=== PATIENT | female | born 1945 | race Caucasian/White ===

== ENCOUNTER → 2018-07-12 | Outpatient (CLI) | payer MEDICARE ==
[~2018-07-12] MED LIST: DARVOCET N 1001 TAB PO
[2018-07-12 13:18] LABS: BUN 10 mg/dl (7-24); CHLORIDE 96 mmol/L (98-107); CHOLESTEROL 189 mg/dL (<200); CREATININE 0.88 mg/dL (0.55-1.02); HDL CHOLESTEROL 62 mg/dl (40-60); LDL CHOLESTEROL 97 mg/dL (9-159); POTASSIUM 4.2 mmol/L (3.5-5.1); SODIUM 133 mmol/L (136-145); TRIGLYCERIDES 152 mg/dl (<150); VLDL CHOLESTEROL 30 mg/dL (6-40)
== END | disposition home or self-care (01) ==
LOC: LAB 12:26
PROVIDERS: Family Medicine
DX: I10 Essential (primary) hypertension (principal)

== ENCOUNTER 2019-08-07 12:35 | Inpatient (IN) | payer MEDICARE ==
[~2019-08-07] VITALS: Ht 160 cm; Wt 44.5 kg
[2019-08-07 12:38] VITALS: BP 172/92
[2019-08-07 15:14] LABS: BASO % 0.3 % (0.0-1.0); EOS % 0.1 % (1.0-4.0); LYMPH # 1.5 10*3/uL (1.3-4.4); LYMPH % 20.8 % (27.0-41.0); MEAN CELL VOLUME 89.7 fl (81.0-99.0); MEAN CORPUSCULAR HGB 29.7 pg (27.0-31.0); MEAN CORPUSCULAR HGB CONC 33.1 g/dl (33.0-37.0); MEAN PLATELET VOLUME 8.8 fl (9.6-12.3); MONO # 1.1 10*3/uL (0.1-1.0); MONO % 15.7 % (3.0-9.0); NEUT # 4.4 10*3/uL (2.3-7.9); NEUT % 62.5 % (47.0-73.0); PLATELET COUNT AUTOMATED 196 10*3/uL (130-400); RED BLOOD COUNT 4.35 10*6/uL (4.10-5.10); RED CELL DISTRI WIDTH 13.4 % (0-14.5)
[2019-08-07 15:31] LABS: ALBUMIN 3.2 gm/dl (3.1-4.5); ALKALINE PHOSPHATASE 58 U/L (45-117); BUN 7 mg/dl (7-24); CHLORIDE 91 mmol/L (98-107); CREATININE 0.63 mg/dL (0.55-1.02); POTASSIUM 3.5 mmol/L (3.5-5.1); SGOT/AST 10 IU/L (3-35); SGPT/ALT 11 U/L (12-78); SODIUM 126 mmol/L (136-145); TOTAL PROTEIN 7.5 gm/dL (6.4-8.2)
[2019-08-07 15:41] LABS: BILIRUBIN NEGATIVE (NEGATIVE); BLOOD NEGATIVE (NEGATIVE); CLARITY CLEAR (CLEAR); COLOR YELLOW (YELLOW); GLUCOSE NEGATIVE (NEGATIVE); KETONE NEGATIVE (NEGATIVE); LEUKO ESTERASE 2+ (NEGATIVE); NITRITE NEGATIVE (NEGATIVE); PH 7.5 (5.0-9.0); UROBILINOGEN 0.2 E.U./dl (0.2-1.0)
[2019-08-07 15:46] LABS: BACTERIA 1+
[2019-08-07 17:05] VITALS: BP 169/76
--- NOTE | 2019-08-07 17:05 | NUR ---
Time: 1704 A 74 year old FEMALE admitted to 4E under services of AILEEN SALEH DO. Pt. arrived via stretcher from ER. Chief complaint: RIGHT FIBULA FRACTURE . APLPE NOEL
[2019-08-07] MEDS ORDERED: DEPAKOTE DR500 MG PO (17:30)
[2019-08-07] MEDS ORDERED: LISINOPRIL20 MG PO (17:30)
[2019-08-07] MEDS ORDERED: HYDROCHLOROTHIA25 M1 PO (17:31)
[2019-08-07] MEDS ORDERED: POTASSIUM CHLO20 ME3 PO (17:31)
--- NOTE | 2019-08-07 18:30 | NUR ---
DR CASSIDY RESIDENT HERE TO SPLINT PT RIGHT LE
[2019-08-07 20:00] VITALS: BP 139/67
--- NOTE | 2019-08-07 22:00 | NUR ---
PATIENT VOICED NO COMPLAINTS AT THIS TIME. ONLY WANTS TV CHANNEL CHANGED. RESP ARE ERND ON ROOM AIR. CALL LIGHT WIHTIN REACH
[2019-08-08] VITALS: BP 159/77
--- NOTE | 2019-08-08 00:16 | NUR ---
STATED YANELI MCKEON SWAB IF FOR SNF PLACEMENT. STATED OK TO SWAB IN AM.
[2019-08-08 06:41] LABS: HEMATOCRIT 37.2 % (37.0-47.0); MEAN CELL VOLUME 90.5 fl (81.0-99.0); MEAN CORPUSCULAR HGB 29.4 pg (27.0-31.0); MEAN CORPUSCULAR HGB CONC 32.5 g/dl (33.0-37.0); MEAN PLATELET VOLUME 9.1 fl (9.6-12.3); PLATELET COUNT AUTOMATED 192 10*3/uL (130-400); RED BLOOD COUNT 4.11 10*6/uL (4.10-5.10); RED CELL DISTRI WIDTH 13.6 % (0-14.5); WHITE BLOOD COUNT 5.1 10*3/uL (4.8-10.8)
[2019-08-08 07:04] LABS: BUN 7 mg/dl (7-24); CHLORIDE 97 mmol/L (98-107); CHOLESTEROL 171 mg/dL (<200); CREATININE 0.69 mg/dL (0.55-1.02); POTASSIUM 3.4 mmol/L (3.5-5.1); SODIUM 131 mmol/L (136-145); TRIGLYCERIDES 65 mg/dl (<150); VLDL CHOLESTEROL 13 mg/dL (6-40)
[2019-08-08 07:14] LABS: HDL CHOLESTEROL 56 mg/dl (40-60); LDL CHOLESTEROL 102 mg/dL (9-159)
[2019-08-08 07:55] LABS: VITAMIN D, 25-HYDROXY 14.7 ng/mL (30-100)
[2019-08-08 08:00] VITALS: BP 159/75
[2019-08-08 08:02] LABS: BASOPHILS 1 % (0-1); PLATELET SUFFICIENCY NORMAL (NORMAL); TOTAL CELLS COUNTED 100 #CELLS
--- NOTE | 2019-08-08 08:47 | NUR ---
PT RESTING IN BED. NO DISTRESS NOTED. WILL MONITOR
--- NOTE | 2019-08-08 10:31 | NUR ---
Parts Specialist in to talk to patient. Patient states lives at HOME with ALONE. There are 12 steps in the home. Physician: DAYLIN Pharmacy: [facility] Home health services: NONE Patient's level of ADLs: INDEPENDENT Patient has working utilities: YES DME: NONE Follow-up physician's appointment after d/c: WILL BE MADE BY HOSPITALIST NURSE DIRECTOR ON DISCHARGE Does patient want to access PORTAL?: NO Discharge plan PT LIVES AT HOME ALONE AND IS INDEPENDENT IN HER CARE. PT STATES SHE IS GOING HOME ON DISCHARGE, SHE STATES SHE HAS 40 CATS TO TAKE CARE OF. TALKED TO HER ABOUT HOME HEALTH BUT SHE ALSO REFUSES THAT. DID GET PT TO AGREE TO THINK ABOUT SNF OR HOME HEALTH WHILE SHE IS WAITING FOR PODIATRY TO SEE WHAT PLAN IS FOR FRACTURE. WILL CONTINUE TO FOLLOW. STATES SHE WILL HAVE A RIDE HOME.. RUI BRANDT
[2019-08-08 12:00] VITALS: BP 162/68
[2019-08-08 16:00] VITALS: BP 131/65
[2019-08-08 20:00] VITALS: BP 141/68
[2019-08-09] VITALS: BP 108/54
--- NOTE | 2019-08-09 00:48 | NUR ---
PATIENT MEDICATED WITH TYLENOL FOR C/O RLE PAIN 06/27. WILL MONITOR
[2019-08-09 08:00] VITALS: BP 133/74
--- NOTE | 2019-08-09 09:00 | NUR ---
0800 AM ASSESSMENT COMPLETE. PT RESTING IN BED. LUNGS ARE CLEAR T/O ON ROOM AIR. BOWEL SOUNDS ARE ACTIVE. DENIES C/O AT THIS TIME. CALL LIGHT IN REACH. WILL MONITOR.
[2019-08-09 12:00] VITALS: BP 127/73
[2019-08-09 16:00] VITALS: BP 135/63
[2019-08-09 20:00] VITALS: BP 160/76
--- NOTE | 2019-08-09 20:00 | NUR ---
PATIENT VOICED NO COMPLAINTS AT THIS TIME. RESP ARE ERND ON ROOM AIR. CALL LIGHT WITHIN REACH
[2019-08-10] VITALS: BP 144/62
[2019-08-10 08:00] VITALS: BP 152/76
--- NOTE | 2019-08-10 08:46 | NUR ---
PHYSICAL THERAPY Nursing screen received and chart reviewed. PT evaluation received. Will follow. Thank you. Joi Naik,PT,DPT
--- NOTE | 2019-08-10 08:55 | NUR ---
Nursing screen and OT eval received. Will follow up with patient. Temi Antonio OTR/L
--- NOTE | 2019-08-10 09:00 | NUR ---
case management visits with patient, daughter in law present, discussed with them a short term alf for rehab prior to returning home, patient and daughter in law were receptive, given choice of facilities, [facility] and [facility] choice. referral will be made to both facilities, daughter in law also asked to have poa/living will papers, will ask social science manager to talk with patient and daughter in law and guide them in filling out the poa/living will paperwork, case management will follow
--- NOTE | 2019-08-10 09:25 | NUR ---
Initial referrals faxed to [facility] and [facility] for review. Waiting on PT eval and Covid -19 test results. Will follow
--- NOTE | 2019-08-10 11:12 | NUR ---
Patients daughter requested HPOA/Living will papers. Provided daughter with requested papers.
[2019-08-10 12:00] VITALS: BP 152/59
--- NOTE | 2019-08-10 13:28 | NUR ---
Patient accepted to [facility]; waiting on PT Evaluation and Covid test results.
--- NOTE | 2019-08-10 14:22 | NUR ---
PHYSICAL THERAPY Physical Therapy evaluation completed on 4E with full evaluation to follow. High complexity PT evaluation per chart review and evaluation, [id number]. Recommend physical therapy per plan of care and SNF upon discharge. Thank you for this referral. Joi Naik,PT,DPT
--- NOTE | 2019-08-10 14:56 | NUR ---
PT/OT came in to state patient is refusing to work with them today because she was told by the doctor not to put any weight on her foot. Patient stated she will not do anything until she talks to Katharine. I spoke with Katharine and she stated patient did call her. She stated the PT/OT staff can explain to patient it is the next step in the process and it is ok to work with them. PT/OT will try to work with patient again tomorrow.
[2019-08-10 16:00] VITALS: BP 157/80
--- NOTE | 2019-08-10 16:18 | NUR ---
Occupational Therapy evaluation completed on 4E with full evaluation to follow. Recommend occupational therapy per plan of care and SNF upon discharge. Thank you for this referral. Temi Antonio OTR/L
--- NOTE | 2019-08-10 18:26 | NUR ---
CALLED REGARDING PATIENT HAS HAD 4 EPISODES OF DIARRHEA. PATIENT REQUESTING "SOMETHING TO MAKE IT QUIT."
[2019-08-10 20:00] VITALS: BP 157/78
--- NOTE | 2019-08-10 20:52 | NUR ---
PATIENT MEDICATED WITH IMMODIUM FOR MULTIPLE EPISODE OF DIARRHEA. PATIENT WAS VISABLY UPSET, STATED SHE HAD AN INCONT. EPISODE D/T DIARRHEA. WILL CONTINUE TO MONITOR
--- NOTE | 2019-08-10 21:52 | NUR ---
IMMODIUM EFFECTIVE AT THIS TIME
[2019-08-11] VITALS: BP 159/79
--- NOTE | 2019-08-11 | NUR ---
PATIENT ASLEEP SIS NOT WANT AWAKEN FOR VITALS
[2019-08-11 06:35] LABS: BASO % 0.3 % (0.0-1.0); EOS % 0.4 % (1.0-4.0); HEMATOCRIT 38.5 % (37.0-47.0); LYMPH # 1.7 10*3/uL (1.3-4.4); MEAN CELL VOLUME 93.4 fl (81.0-99.0); MEAN CORPUSCULAR HGB 30.1 pg (27.0-31.0); MEAN CORPUSCULAR HGB CONC 32.2 g/dl (33.0-37.0); MEAN PLATELET VOLUME 9.1 fl (9.6-12.3); MONO # 1.4 10*3/uL (0.1-1.0); MONO % 15.2 % (3.0-9.0); NEUT # 6.1 10*3/uL (2.3-7.9); NEUT % 65.7 % (47.0-73.0); PLATELET COUNT AUTOMATED 206 10*3/uL (130-400); RED BLOOD COUNT 4.12 10*6/uL (4.10-5.10); RED CELL DISTRI WIDTH 14.1 % (0-14.5); WHITE BLOOD COUNT 9.3 10*3/uL (4.8-10.8)
[2019-08-11 06:58] LABS: BUN 8 mg/dl (7-24); CHLORIDE 104 mmol/L (98-107); CREATININE 0.68 mg/dL (0.55-1.02); POTASSIUM 4.2 mmol/L (3.5-5.1); SODIUM 135 mmol/L (136-145)
--- NOTE | 2019-08-11 07:34 | NUR ---
Updates and PT/OT evals faxed to [facility] for review. Covid still pending.
--- NOTE | 2019-08-11 08:00 | NUR ---
PHYSICAL THERAPY Patient seen this am 1;1 for therapy visit and was supine in bed upon therapist arrival. Patient identified by name / and was joined by OT assistant professor of communication who was also present for observation this session. Patient reports 8/10 R LE pain, presenting with R foot / ankle cast. Patient needed MAX encouragement to complete all therapy task this morning, transfering supine to sit EOB with MIN A x 2. Patient tolerated static EOB sit x several minutes to collect herself and is NWB on R LE. Patient performed several sit to stand transfers with MIN A, then completed SPT to bedside chair, MIN A, demonstrating increased difficulty with use of wh walker standing support. Patient 75% compliant with NWB status R LE during pivot phase of transfer, receiving repeated v/c's to complete safe transfer. Patient becomes easily agitated when rushed and needs extra time to complete safe transfers. Patient remained in bedside chair with R LE elevated in semi reclined position, including call light, tray table and body alarm. Will continue per POC as tolerated, total treatment time 14 minutes. Jorge Venegas, HEARING OFFICER
--- NOTE | 2019-08-11 08:15 | NUR ---
OT NOTE Pt was seen this A.M. 1:1 for 25 minute OT session. Upon arrival pt was supine in bed. Pt identified by name and and had complaints of 8/10 RLE pain. Pt's resting SpO2 92% and heart rate 91 bpm. While supine in bed requested for pt to zaki L sock and pants and pt reported "I can't do that, you have to do it for me" pants and L sock donned with maxA requiring assist for zaki and lifting BLE's due to pt reporting she was unable to lift her legs. Pt was educated on NWB to RLE which she was able to self recall. Pt transferred supine to sit EOB with Fareed X 2 for assist with BLE's and UB. Pt completed sit to stand from bed level with Fareed X 2 and use of w/w for UE support. Challenged pt's static standing tolerance needed for increased I in self care tasks and functional transfers, pt was able to tolerate aprox 30-45 seconds at a time before sitting. Standing pivot completed from the EOB to the recliner with Fareed X 2 and aprox 75% compliance with NWB to RLE. Pt was left sitting upright in the recliner with call light in hand, tray table in place, and body alarm activated for safety. Continue with rec D/C plan to SNF. LORY Gordon
[2019-08-11 08:36] VITALS: BP 125/66
--- NOTE | 2019-08-11 09:00 | NUR ---
case management visits with patient, patient was sitting up in a chair in her room, discussed the discharge plan with her of being discharged to [facility] for short term custodial rehab, she was receptive to this, case management will follow
--- NOTE | 2019-08-11 11:01 | NUR ---
MEDICATED WITH PRN NORCO PER ORDER AND REQUEST. WOULD NOT TAKE EARLIER WHEN SHE ASKED FOR ONE BECAUSE HER SON WAS ADDICTED AND SHE DIDNT WANT TO TAKE A PILL THAT WILL HER HER.
--- NOTE | 2019-08-11 11:35 | NUR ---
[facility] stated they will accept this patient today while the Covid test result is still pending. They are stating as long as the patient is not exhibiting any Covid sx. Notified hospitalists office patient can be discharged today.
[2019-08-11 12:00] VITALS: BP 120/55
--- NOTE | 2019-08-11 12:20 | NUR ---
Patient is discharged to [facility] via [facility] at 1:45. disbursement clerk/nursing notified. Daughter in law Katharine notified. DC orders faxed.
--- NOTE | 2019-08-11 14:49 | NUR ---
[facility] IS HERE TO TRANSPORT PATIENT.
--- NOTE | 2019-08-12 08:40 | NUR ---
OCCUPATIONAL THERAPY CO-SIGN I approve of the Occupational Therapy notes written above. Temi Antonio OTR/L
--- NOTE | 2019-08-12 08:41 | NUR ---
PHYSICAL THERAPY CO-SIGN I approve of the Physical Therapy notes written above. VALERIA BUTTERFIELD PT, DPT
== END 2019-08-11 14:49 | disposition other institution (70) | DRG 563 ==
LOC: ED 12:35 → 4E 15:28 → EDHOLD 15:28 → 4E 15:58
PROVIDERS: Internal Medicine; Nurse Practitioner Family; ADMIT Emergency Medicine
PROC: 2W3QX1Z Immobilization of Right Lower Leg using Splint (ICD-10-PCS; principal; 2019-08-07)
DX: S82.831A Other fracture of upper and lower end of right fibula, initial encounter for closed fracture (principal); E87.1 Hypo-osmolality and hyponatremia; N30.00 Acute cystitis without hematuria; R26.2 Difficulty in walking, not elsewhere classified; E87.8 Other disorders of electrolyte and fluid balance, not elsewhere classified; F17.210 Nicotine dependence, cigarettes, uncomplicated; I16.0 Hypertensive urgency; W01.0XXA Fall on same level from slipping, tripping and stumbling without subsequent striking against object, initial encounter; I10 Essential (primary) hypertension; R63.6 Underweight; F31.9 Bipolar disorder, unspecified; Y93.89 Activity, other specified; Y92.098 Other place in other non-institutional residence as the place of occurrence of the external cause; Z71.6 Tobacco abuse counseling; Z68.31 Body mass index [BMI] 31.0-31.9, adult; Y99.8 Other external cause status; Z91.030 Bee allergy status; Z91.040 Latex allergy status; Z79.899 Other long term (current) drug therapy; Z03.818 Encounter for observation for suspected exposure to other biological agents ruled out

== ENCOUNTER → 2019-11-13 | Outpatient (CLI) | payer MEDICARE ==
[~2019-11-13] MED LIST changes: +DEPAKOTE DR500 MG PO; +HYDROCHLOROTHIA25 M1 PO; +LISINOPRIL20 MG PO; +POTASSIUM CHLO20 ME3 PO
== END | disposition home or self-care (01) ==
LOC: RESCLI 02:59
PROVIDERS: ATTEND Family Medicine
DX: I10 Essential (primary) hypertension (principal); F32.9 Major depressive disorder, single episode, unspecified; F41.1 Generalized anxiety disorder; E55.9 Vitamin D deficiency, unspecified; Z53.29 Procedure and treatment not carried out because of patient's decision for other reasons; Z53.20 Procedure and treatment not carried out because of patient's decision for unspecified reasons; Z79.899 Other long term (current) drug therapy; Z87.891 Personal history of nicotine dependence

== ENCOUNTER 2019-12-19 11:26 | Emergency (ER) | payer MEDICARE ==
[~2019-12-19] VITALS: Ht 162.5 cm; Wt 49.4 kg
[2019-12-19 12:23] LABS: BASO % 0.1 % (0.0-1.0); EOS # 0.2 10*3/uL (0.0-0.4); EOS % 3.2 % (1.0-4.0); HEMATOCRIT 43.3 % (37.0-47.0); LYMPH # 2.1 10*3/uL (1.3-4.4); LYMPH % 30.8 % (27.0-41.0); MEAN CELL VOLUME 92.3 fl (81.0-99.0); MEAN CORPUSCULAR HGB 28.8 pg (27.0-31.0); MEAN CORPUSCULAR HGB CONC 31.2 g/dl (33.0-37.0); MEAN PLATELET VOLUME 9.3 fl (9.6-12.3); MONO # 1.1 10*3/uL (0.1-1.0); MONO % 16.1 % (3.0-9.0); NEUT # 3.4 10*3/uL (2.3-7.9); NEUT % 49.4 % (47.0-73.0); PLATELET COUNT AUTOMATED 258 10*3/uL (130-400); RED BLOOD COUNT 4.69 10*6/uL (4.10-5.10); RED CELL DISTRI WIDTH 14.6 % (0-14.5); WHITE BLOOD COUNT 6.9 10*3/uL (4.8-10.8)
[2019-12-19 12:34] LABS: ACT PARTIAL THROMBO TIME 26.4 SECONDS (20.0-32.1)
[2019-12-19 12:44] LABS: ALBUMIN 3.6 gm/dl (3.1-4.5); ALKALINE PHOSPHATASE 90 U/L (45-117); BUN 15 mg/dl (7-24); CHLORIDE 107 mmol/L (98-107); CREATININE 0.86 mg/dL (0.55-1.02); POTASSIUM 4.3 mmol/L (3.5-5.1); SGOT/AST 21 IU/L (3-35); SGPT/ALT 12 U/L (12-78); SODIUM 140 mmol/L (136-145); TOTAL PROTEIN 7.7 gm/dL (6.4-8.2)
[2019-12-19 12:45] LABS: ACETAMINOPHEN (TYLENOL) < 5.0 ug/ml (10-30); ETHYL ALCOHOL < 3.0 mg/dl (<3); TROPONIN I < 0.015 ng/ml (<0.045)
[2019-12-19 12:56] LABS: BILIRUBIN Negative (Negative); BLOOD Negative (Negative); CLARITY Clear (Clear); COLOR Yellow (Yellow); GLUCOSE Negative (Negative); KETONE Negative (Negative); LEUKO ESTERASE Trace (Negative); NITRITE Negative (Negative); UROBILINOGEN 0.2 E.U./dl (0.0-1.0)
[2019-12-19 13:04] LABS: URINE AMPHETAMINES < 1000 (1000ng/ml); URINE BARBITURATES < 200 (200ng/ml); URINE BENZODIAZEPINES < 200 (200ng/ml); URINE CANNABINOIDS (THC) < 50 (50ng/ml); URINE COCAINE < 300 (300ng/ml); URINE METHADONE < 300 (300ng/ml); URINE OPIATES < 300 (300ng/ml)
[2019-12-19 13:05] LABS: BACTERIA TRACE; EPITHELIAL CELLS 0-2; MUCOUS TRACE; RBC 0-2 rbc/hpf (0-2)
[2019-12-19 13:06] LABS: URINE PHENCYCLIDINE < 25 (25ng/ml)
== END 2019-12-19 22:55 | disposition short-term general hospital (02) ==
LOC: ED 11:26
PROVIDERS: Emergency Medicine
DX: I63.9 Cerebral infarction, unspecified (principal); I10 Essential (primary) hypertension; F31.9 Bipolar disorder, unspecified; Z79.899 Other long term (current) drug therapy

== ENCOUNTER → 2020-08-25 | Outpatient (CLI) | payer OTHER ==
[~2020-08-25] MED LIST changes: +ASPIRIN ADULT L81 M1 PO; +LIPITOR40 MG PO; +LOPRESSOR25 MG PO; +MUCINEX ER600 MG PO; +MUCUS RELIEF600 MG PO; +NORVASC5 MG PO; +PREDNISONE10 MG PO; +PROZAC20 MG PO; +REMERON15 M2 PO; +TYLENOL325 M2 PO; +VITAMIN D350 MCG PO; +ZITHROMAX250 MG PO
== END | disposition home or self-care (01) ==
LOC: RAD/SH 13:00
PROVIDERS: ATTEND Family Medicine
DX: R13.12 Dysphagia, oropharyngeal phase (principal)

== ENCOUNTER 2020-08-31 13:39 | Inpatient (IN) | payer OTHER ==
[~2020-08-31] VITALS: Ht 160 cm; Wt 62.2 kg
[~2020-08-31 13:39] MED LIST changes: -LOPRESSOR25 MG PO; -MUCINEX ER600 MG PO; -TYLENOL325 M2 PO
[2020-08-31 13:45] VITALS: BP 109/55
[2020-08-31 14:35] LABS: BASO % 0.6 % (0.0-1.0); EOS # 0.1 10*3/uL (0.0-0.4); EOS % 1.3 % (1.0-4.0); HEMATOCRIT 43.3 % (37.0-47.0); LYMPH # 1.3 10*3/uL (1.3-4.4); LYMPH % 24.8 % (27.0-41.0); MEAN CELL VOLUME 91.9 fl (81.0-99.0); MEAN CORPUSCULAR HGB 29.3 pg (27.0-31.0); MEAN CORPUSCULAR HGB CONC 31.9 g/dl (33.0-37.0); MEAN PLATELET VOLUME 9.8 fl (9.6-12.3); MONO # 0.9 10*3/uL (0.1-1.0); NEUT % 56.1 % (47.0-73.0); PLATELET COUNT AUTOMATED 351 10*3/uL (130-400); RED BLOOD COUNT 4.71 10*6/uL (4.10-5.10); RED CELL DISTRI WIDTH 14.3 % (0-14.5); WHITE BLOOD COUNT 5.4 10*3/uL (4.8-10.8)
[2020-08-31 14:54] LABS: ALBUMIN 2.8 gm/dl (3.1-4.5); ALKALINE PHOSPHATASE 130 U/L (45-117); BUN 20 mg/dl (7-24); CHLORIDE 102 mmol/L (98-107); SGOT/AST 18 IU/L (3-35); SGPT/ALT 9 U/L (12-78); SODIUM 135 mmol/L (136-145); TOTAL PROTEIN 6.2 gm/dL (6.4-8.2)
[2020-08-31 15:16] LABS: POTASSIUM 2.4 mmol/L (3.5-5.1); TROPONIN I < 0.015 ng/ml (<0.045)
[2020-08-31 15:49] LABS: LIPASE 76 U/L (73-393); VALPROIC ACID (DEPAKENE) < 3.0 ug/ml (50-100)
[2020-08-31 17:53] VITALS: BP 115/58
[2020-08-31 18:00] LABS: BILIRUBIN Negative (Negative); BLOOD Negative (Negative); CLARITY Clear (Clear); COLOR Yellow (Yellow); GLUCOSE Negative (Negative); KETONE Negative (Negative); LEUKO ESTERASE 1+ (Negative); NITRITE Negative (Negative); SPECIFIC GRAVITY 1.015 (1.001-1.030)
[2020-08-31 18:17] LABS: BACTERIA 1+
[2020-08-31 18:50] VITALS: BP 127/57
[2020-08-31 20:00] VITALS: BP 134/57
[2020-09-01] VITALS: BP 126/60
[2020-09-01 06:01] LABS: ALBUMIN 2.2 gm/dl (3.1-4.5); BUN 16 mg/dl (7-24); CHLORIDE 108 mmol/L (98-107); CREATININE 0.69 mg/dL (0.55-1.02); POTASSIUM 2.8 mmol/L (3.5-5.1); SGOT/AST 17 IU/L (3-35); SGPT/ALT 8 U/L (12-78); SODIUM 138 mmol/L (136-145)
[2020-09-01 06:06] LABS: BASO % 0.5 % (0.0-1.0); EOS # 0.2 10*3/uL (0.0-0.4); EOS % 3.5 % (1.0-4.0); HEMATOCRIT 34.6 % (37.0-47.0); LYMPH # 1.4 10*3/uL (1.3-4.4); LYMPH % 32.2 % (27.0-41.0); MEAN CELL VOLUME 93.5 fl (81.0-99.0); MEAN CORPUSCULAR HGB 29.7 pg (27.0-31.0); MEAN CORPUSCULAR HGB CONC 31.8 g/dl (33.0-37.0); MEAN PLATELET VOLUME 10.1 fl (9.6-12.3); MONO # 0.8 10*3/uL (0.1-1.0); MONO % 18.8 % (3.0-9.0); NEUT # 1.9 10*3/uL (2.3-7.9); NEUT % 44.1 % (47.0-73.0); PLATELET COUNT AUTOMATED 275 10*3/uL (130-400); RED CELL DISTRI WIDTH 14.4 % (0-14.5); WHITE BLOOD COUNT 4.3 10*3/uL (4.8-10.8)
[2020-09-01 06:08] LABS: ALKALINE PHOSPHATASE 101 U/L (45-117); FREE T4 1.22 ng/dl (0.76-1.46); THYROID STIM HORMONE (HS) 0.806 uIU/ml (0.358-4.75)
[2020-09-01 08:00] VITALS: BP 129/55
[2020-09-01 12:00] VITALS: BP 124/43
[2020-09-01 16:00] VITALS: BP 115/44
[2020-09-01 20:00] VITALS: BP 118/56
[2020-09-02] VITALS: BP 133/60
[2020-09-02 08:00] VITALS: BP 134/68
[2020-09-02 08:00] LABS: BASO % 0.5 % (0.0-1.0); EOS # 0.1 10*3/uL (0.0-0.4); EOS % 2.7 % (1.0-4.0); HEMATOCRIT 37.6 % (37.0-47.0); LYMPH # 1.3 10*3/uL (1.3-4.4); LYMPH % 30.1 % (27.0-41.0); MEAN CELL VOLUME 93.1 fl (81.0-99.0); MEAN CORPUSCULAR HGB 29.2 pg (27.0-31.0); MEAN CORPUSCULAR HGB CONC 31.4 g/dl (33.0-37.0); MEAN PLATELET VOLUME 9.5 fl (9.6-12.3); MONO # 0.7 10*3/uL (0.1-1.0); MONO % 16.6 % (3.0-9.0); NEUT # 2.2 10*3/uL (2.3-7.9); NEUT % 49.6 % (47.0-73.0); PLATELET COUNT AUTOMATED 288 10*3/uL (130-400); RED BLOOD COUNT 4.04 10*6/uL (4.10-5.10); RED CELL DISTRI WIDTH 14.5 % (0-14.5); WHITE BLOOD COUNT 4.4 10*3/uL (4.8-10.8)
[2020-09-02 08:11] LABS: BUN 13 mg/dl (7-24); CHLORIDE 111 mmol/L (98-107); CREATININE 0.65 mg/dL (0.55-1.02); POTASSIUM 2.9 mmol/L (3.5-5.1); SODIUM 141 mmol/L (136-145)
[2020-09-02 12:00] VITALS: BP 121/60
== END 2020-09-02 13:20 | DRG 641 ==
LOC: ED 13:39 → 4E 15:29 → EDHOLD 15:29 → 4E 17:43
PROVIDERS: Emergency Medicine; Social Worker Clinical; Student in an Organized Health Care Education/Training Program; ADMIT Internal Medicine; ATTEND Internal Medicine
DX: E87.6 Hypokalemia (principal); E44.0 Moderate protein-calorie malnutrition; E87.1 Hypo-osmolality and hyponatremia; E87.2 Acidosis; F32.9 Major depressive disorder, single episode, unspecified; I10 Essential (primary) hypertension; R73.9 Hyperglycemia, unspecified; Z20.822 Contact with and (suspected) exposure to COVID-19; J44.9 Chronic obstructive pulmonary disease, unspecified; Z86.73 Personal history of transient ischemic attack (TIA), and cerebral infarction without residual deficits; Z87.891 Personal history of nicotine dependence; Z82.49 Family history of ischemic heart disease and other diseases of the circulatory system; Z83.3 Family history of diabetes mellitus; Z68.24 Body mass index [BMI] 24.0-24.9, adult

== ENCOUNTER 2020-10-13 23:05 | Inpatient (IN) | payer OTHER ==
[~2020-10-13] VITALS: Ht 160 cm; Wt 54.6 kg
[2020-10-13 23:08] VITALS: BP 151/74
[2020-10-13 23:23] LABS: BASO % 0.5 % (0.0-1.0); EOS # 0.2 10*3/uL (0.0-0.4); EOS % 3.6 % (1.0-4.0); HEMATOCRIT 40.2 % (37.0-47.0); LYMPH # 2.1 10*3/uL (1.3-4.4); LYMPH % 34.8 % (27.0-41.0); MEAN CORPUSCULAR HGB 28.3 pg (27.0-31.0); MEAN CORPUSCULAR HGB CONC 31.1 g/dl (33.0-37.0); MEAN PLATELET VOLUME 9.4 fl (9.6-12.3); MONO % 15.8 % (3.0-9.0); NEUT # 2.7 10*3/uL (2.3-7.9); PLATELET COUNT AUTOMATED 317 10*3/uL (130-400); RED BLOOD COUNT 4.42 10*6/uL (4.10-5.10); RED CELL DISTRI WIDTH 13.8 % (0-14.5); WHITE BLOOD COUNT 6.1 10*3/uL (4.8-10.8)
[2020-10-13 23:41] LABS: ALKALINE PHOSPHATASE 147 U/L (45-117); BUN 9 mg/dl (7-24); CHLORIDE 107 mmol/L (98-107); CREATININE 0.82 mg/dL (0.55-1.02); POTASSIUM 3.5 mmol/L (3.5-5.1); SGOT/AST 16 IU/L (3-35); SGPT/ALT 10 U/L (12-78); SODIUM 139 mmol/L (136-145); TOTAL PROTEIN 6.4 gm/dL (6.4-8.2)
[2020-10-13 23:43] LABS: TROPONIN I 0.425 ng/ml (<0.045)
[2020-10-14] VITALS (10 sets, daily range): BP systolic 99–137; BP diastolic 49–74
[2020-10-14 05:40] LABS: ALBUMIN 2.7 gm/dl (3.1-4.5); ALKALINE PHOSPHATASE 126 U/L (45-117); BUN 7 mg/dl (7-24); CHLORIDE 112 mmol/L (98-107); CHOLESTEROL 125 mg/dL (<200); CREATININE 0.79 mg/dL (0.55-1.02); FREE T4 1.04 ng/dl (0.76-1.46); LDL CHOLESTEROL 67 mg/dL (9-159); POTASSIUM 3.1 mmol/L (3.5-5.1); SGOT/AST 19 IU/L (3-35); SGPT/ALT 9 U/L (12-78); SODIUM 143 mmol/L (136-145); TOTAL PROTEIN 5.7 gm/dL (6.4-8.2); TRIGLYCERIDES 66 mg/dl (<150)
[2020-10-14 06:10] LABS: BASO % 0.5 % (0.0-1.0); EOS # 0.2 10*3/uL (0.0-0.4); EOS % 3.8 % (1.0-4.0); HEMATOCRIT 37.9 % (37.0-47.0); LYMPH # 1.7 10*3/uL (1.3-4.4); MEAN CELL VOLUME 90.5 fl (81.0-99.0); MEAN CORPUSCULAR HGB 28.2 pg (27.0-31.0); MEAN CORPUSCULAR HGB CONC 31.1 g/dl (33.0-37.0); MEAN PLATELET VOLUME 9.6 fl (9.6-12.3); MONO # 0.9 10*3/uL (0.1-1.0); MONO % 16.4 % (3.0-9.0); NEUT # 2.7 10*3/uL (2.3-7.9); NEUT % 48.9 % (47.0-73.0); PLATELET COUNT AUTOMATED 319 10*3/uL (130-400); RED BLOOD COUNT 4.19 10*6/uL (4.10-5.10); RED CELL DISTRI WIDTH 13.8 % (0-14.5); WHITE BLOOD COUNT 5.6 10*3/uL (4.8-10.8)
[2020-10-14 08:40] LABS: ACT PARTIAL THROMBO TIME 24.6 SECONDS (20.0-32.1)
[2020-10-14] MEDS ORDERED: MUCINEX ER600 MG PO (16:40)
[2020-10-14] MEDS ORDERED: TYLENOL325 M2 PO (16:42)
[2020-10-15 06:16] LABS: CHLORIDE 114 mmol/L (98-107); POTASSIUM 3.6 mmol/L (3.5-5.1); SODIUM 145 mmol/L (136-145)
[2020-10-15 06:24] LABS: ALBUMIN 2.4 gm/dl (3.1-4.5); ALKALINE PHOSPHATASE 117 U/L (45-117); BUN 10 mg/dl (7-24); SGOT/AST 28 IU/L (3-35); SGPT/ALT 8 U/L (12-78); TOTAL PROTEIN 5.2 gm/dL (6.4-8.2)
[2020-10-15 06:27] LABS: BASO % 0.5 % (0.0-1.0); EOS # 0.3 10*3/uL (0.0-0.4); EOS % 5.4 % (1.0-4.0); HEMATOCRIT 38.6 % (37.0-47.0); LYMPH # 2.2 10*3/uL (1.3-4.4); LYMPH % 39.1 % (27.0-41.0); MEAN CELL VOLUME 92.1 fl (81.0-99.0); MEAN CORPUSCULAR HGB 28.2 pg (27.0-31.0); MEAN CORPUSCULAR HGB CONC 30.6 g/dl (33.0-37.0); MEAN PLATELET VOLUME 9.7 fl (9.6-12.3); MONO # 0.8 10*3/uL (0.1-1.0); MONO % 13.9 % (3.0-9.0); NEUT # 2.3 10*3/uL (2.3-7.9); NEUT % 40.9 % (47.0-73.0); PLATELET COUNT AUTOMATED 277 10*3/uL (130-400); RED BLOOD COUNT 4.19 10*6/uL (4.10-5.10); WHITE BLOOD COUNT 5.5 10*3/uL (4.8-10.8)
[2020-10-15 08:00] VITALS: BP 119/58
[2020-10-15 12:00] VITALS: BP 106/46
[2020-10-15 16:00] VITALS: BP 100/50
[2020-10-15 20:00] VITALS: BP 133/52
[2020-10-16 08:00] VITALS: BP 129/56
[2020-10-16] MEDS ORDERED: LOPRESSOR25 MG PO (11:22)
[2020-10-16 12:00] VITALS: BP 130/52
[2020-10-16 16:00] VITALS: BP 114/51
[2020-10-16 20:00] VITALS: BP 110/60
[2020-10-17] VITALS: BP 117/55
[2020-10-17 07:54] VITALS: BP 132/88
== END 2020-10-17 07:54 | disposition short-term general hospital (02) | DRG 280 ==
LOC: ED 23:05 → EDHOLD 10-14 01:09 → 4E 10-14 01:09 → EDHOLD 10-14 01:43 → 4E 10-14 05:18
PROVIDERS: Emergency Medicine; Internal Medicine; Student in an Organized Health Care Education/Training Program; ADMIT Internal Medicine; ATTEND Internal Medicine
DX: I21.4 Non-ST elevation (NSTEMI) myocardial infarction (principal); E43 Unspecified severe protein-calorie malnutrition; E40 Kwashiorkor; D64.9 Anemia, unspecified; E87.6 Hypokalemia; Z66 Do not resuscitate; Z51.5 Encounter for palliative care; Z20.822 Contact with and (suspected) exposure to COVID-19; I10 Essential (primary) hypertension; F31.9 Bipolar disorder, unspecified; E78.5 Hyperlipidemia, unspecified; E55.9 Vitamin D deficiency, unspecified; E11.9 Type 2 diabetes mellitus without complications; J44.9 Chronic obstructive pulmonary disease, unspecified; Z86.73 Personal history of transient ischemic attack (TIA), and cerebral infarction without residual deficits; Z87.891 Personal history of nicotine dependence; Z91.040 Latex allergy status; Z82.49 Family history of ischemic heart disease and other diseases of the circulatory system; Z83.3 Family history of diabetes mellitus; Z79.899 Other long term (current) drug therapy; Z68.21 Body mass index [BMI] 21.0-21.9, adult

== ENCOUNTER 2021-02-01 09:58 | Emergency (ER) | payer OTHER ==
[~2021-02-01] VITALS: Ht 157.4 cm; Wt 61.2 kg
[~2021-02-01 09:58] MED LIST changes: +LOPRESSOR25 MG PO; +MUCINEX ER600 MG PO; +TYLENOL325 M2 PO
[2021-02-01 11:05] LABS: BASO % 0.7 % (0.0-1.0); EOS # 0.2 10*3/uL (0.0-0.4); EOS % 3.5 % (1.0-4.0); HEMATOCRIT 35.9 % (37.0-47.0); LYMPH # 1.4 10*3/uL (1.3-4.4); LYMPH % 31.3 % (27.0-41.0); MEAN CELL VOLUME 90.2 fl (81.0-99.0); MEAN CORPUSCULAR HGB 27.4 pg (27.0-31.0); MEAN CORPUSCULAR HGB CONC 30.4 g/dl (33.0-37.0); MEAN PLATELET VOLUME 9.9 fl (9.6-12.3); MONO # 0.7 10*3/uL (0.1-1.0); MONO % 15.2 % (3.0-9.0); NEUT # 2.2 10*3/uL (2.3-7.9); NEUT % 49.1 % (47.0-73.0); PLATELET COUNT AUTOMATED 269 10*3/uL (130-400); RED BLOOD COUNT 3.98 10*6/uL (4.10-5.10); RED CELL DISTRI WIDTH 16.5 % (0-14.5); WHITE BLOOD COUNT 4.5 10*3/uL (4.8-10.8)
[2021-02-01 11:31] LABS: ALBUMIN 2.9 gm/dl (3.1-4.5); ALKALINE PHOSPHATASE 123 U/L (45-117); BUN 14 mg/dl (7-24); CHLORIDE 114 mmol/L (98-107); CREATININE 0.93 mg/dL (0.55-1.02); POTASSIUM 3.6 mmol/L (3.5-5.1); SGOT/AST 11 IU/L (3-35); SGPT/ALT 11 U/L (12-78); SODIUM 145 mmol/L (136-145); TOTAL PROTEIN 6.1 gm/dL (6.4-8.2)
== END 2021-02-01 12:47 ==
LOC: ED 09:58
PROVIDERS: Student in an Organized Health Care Education/Training Program
DX: E16.2 Hypoglycemia, unspecified (principal); Z91.040 Latex allergy status; Z79.899 Other long term (current) drug therapy; Z79.82 Long term (current) use of aspirin; Z87.891 Personal history of nicotine dependence